=== PATIENT | male | born 1960 | race Two or more races ===

== ENCOUNTER 2025-02-24 07:14 | Outpatient (CLI) | payer OTHER ==
[2025-02-24 08:38] LABS: BASO % 0.9 % (0.1-1.2); EOS # 0.28 (0.04-0.54); EOS % 6.3 % (0.7-7.0); LYMPH # 1.04 (1.18-3.74); LYMPH % 23.4 % (19.3-53.1); MEAN PLATELET VOLUME 9.40 fl (9.4-12.4); MONO # 0.41 (0.24-0.82); MONO % 9.2 % (4.7-12.5); NEUT # 2.66 (1.56-6.13); NEUT % 60.0 % (34.0-71.1); RED CELL DISTRIBUTION WIDTH 13.3 % (11.6-14.4)
[2025-02-24 09:02] LABS: ALT/SGPT 26.0 U/L (12-78); AST/SGOT 16.0 U/L (15-37); BILIRUBIN TOTAL 0.92 mg/dL (0.3-1.2); BUN CREA RATIO 17.0 (7.0-25.0); CREATININE SERUM 0.86 mg/dL (0.70-1.30); FE 81.0 ug/dl (65-175); GFR 89.53; GLOBULINA 2.9 G/DL (2.4-3.5); GLUCOSE FASTING 90.0 mg/dL (65-100); LDH 217.0 U/L (87-241); OSMOLALITY SERUM 285.0 MOSM/KG (275-295); PROSTATIC SPECIFIC ANTIGEN 1.93 NG/ML (0.010-4.00)
[2025-02-26 11:46] LABS: FOLIC ACID 10.92 ng/ml (4.78-20)
== END 2025-02-24 07:19 | disposition home or self-care (01) ==
LOC: LAB 07:14
PROVIDERS: ATTEND Internal Medicine Hematology & Oncology
DX: D75.0 Familial erythrocytosis (principal); I10 Essential (primary) hypertension; E11.9 Type 2 diabetes mellitus without complications; E78.2 Mixed hyperlipidemia; I73.9 Peripheral vascular disease, unspecified; I83.899 Varicose veins of unspecified lower extremity with other complications; D50.8 Other iron deficiency anemias; R74.02 Elevation of levels of lactic acid dehydrogenase [LDH]; K76.89 Other specified diseases of liver; D51.1 Vitamin B12 deficiency anemia due to selective vitamin B12 malabsorption with proteinuria; D51.0 Vitamin B12 deficiency anemia due to intrinsic factor deficiency; R97.0 Elevated carcinoembryonic antigen [CEA]